=== PATIENT | female | born 1980 | race Caucasian/White ===

== ENCOUNTER 2016-10-17 17:22 | Emergency (ER) | payer OTHER ==
[~2016-10-17] VITALS: Ht 165.1 cm; Wt 79.8 kg
[~2016-10-17 17:22] MED LIST: ADVIL200 MG PO; ATARAX,VISTARIL25 MG PO; LEXAPRO20 MG PO; MOTRIN800 MG PO; Micronor PO; VENTOLIN HFA18 GM IH; ZITHROMAX Z-PA250 MG PO
[2016-10-17 18:48] LABS: HEMATOCRIT 45.5 % (36.0-46.0); MCH 31.5 PG (29.0-34.0); MCV 95.6 FL (83-99); MEAN PLAT.VOLUME 9.7 uM^3 (9.5-12.4); PLATELET COUNT 202 K/uL (156-360); RBC DIS.WIDTH-CV 12.4 % (11.8-14.6); RBC DIS.WIDTH-SD 44.1 % (39-53); RED BLOOD COUNT 4.76 M/uL (3.80-5.20); WHITE BLOOD COUNT 7.3 K/uL (4.1-10.2)
[2016-10-17 18:57] LABS: CHLORIDE 103 mEq/L (99-109); POTASSIUM 4.2 mEq/L (3.7-5.4); SODIUM 138 mEq/L (136-147)
[2016-10-17 18:59] LABS: GLUCOSE 93 mg/dL (70-99)
[2016-10-17 19:01] LABS: ANION GAP 8 MEQ/L (2-14)
[2016-10-17 19:03] LABS: GFR ESTIMATE (CALCULATED) > 59 mL/min/
[2016-10-17 19:04] LABS: UREA NITROGEN (BUN) 22 mg/dL (9-23)
[2016-10-17 19:08] LABS: TROP-I INTERPRETATION NEGATIVE; TROPONIN-I < 0.01 ng/mL (0.0-0.30)
[2016-10-17 19:11] LABS: QUANTITATIVE HCG < 4.0 MIU/ML
[2016-10-17 20:24] LABS: TROP-I INTERPRETATION NEGATIVE; TROPONIN-I < 0.01 ng/mL (0.0-0.30)
[2016-10-17 20:46] VITALS: BP 135/82
== END 2016-10-17 20:47 | disposition home or self-care (01) ==
LOC: EME 17:22
PROVIDERS: Physician Assistant Medical
DX: R07.89 Other chest pain (principal); Z87.891 Personal history of nicotine dependence
CPT/HCPCS: 71020; 80048; 84484; 84702; 85027; 93005; 99281; 99283

== ENCOUNTER → 2016-10-28 | Outpatient (CLI) | payer OTHER | END | disposition home or self-care (01) | LOC: CT 19:53 | DX: R10.31 Right lower quadrant pain (principal) | CPT/HCPCS: 74177 ==

== ENCOUNTER 2017-01-08 04:26 | Emergency (ER) | payer OTHER ==
[~2017-01-08] VITALS: Ht 165.1 cm; Wt 81.8 kg
[2017-01-08 05:24] LABS: BASOPHIL COUNT 0.1 K/uL (0-0.1); EOSINOPHIL (%) 1.7 % (0-5); EOSINOPHIL COUNT 0.3 K/uL (0-0.3); IMMATURE GRANULOCYTE (%) 0.7 % (0.0-0.7); IMMATURE GRANULOCYTE COUNT 0.1 K/uL; INSTRUMENT ABS NEUTROPHIL CT 14.9 K/uL; LYMPHOCYTE COUNT 1.1 K/uL (1.0-2.8); MCH 31.4 PG (29.0-34.0); MCHC 33.7 G/DL (30.0-36.0); MCV 93.4 FL (83-99); MEAN PLAT.VOLUME 9.1 uM^3 (9.5-12.4); MONOCYTE (%) 2.6 % (3-12); MONOCYTE COUNT 0.4 K/uL (0-0.8); NEUTROPHIL COUNT 14.9 K/uL (1.8-6.4); PLATELET COUNT 158 K/uL (156-360); RBC DIS.WIDTH-CV 12.5 % (11.8-14.6); RBC DIS.WIDTH-SD 43.3 % (39-53); RED BLOOD COUNT 4.07 M/uL (3.80-5.20); WHITE BLOOD COUNT 16.9 K/uL (4.1-10.2)
[2017-01-08 05:35] LABS: CHLORIDE 101 mEq/L (99-109); POTASSIUM 3.7 mEq/L (3.7-5.4); SODIUM 136 mEq/L (136-147)
[2017-01-08 05:38] LABS: GLUCOSE 104 mg/dL (70-99)
[2017-01-08 05:39] LABS: ANION GAP 10 MEQ/L (2-14)
[2017-01-08 05:40] LABS: TOTAL BILIRUBIN 0.4 mg/dL (0.0-1.0)
[2017-01-08 05:41] LABS: ALKALINE PHOSPHATASE 46 IU/L (3-129)
[2017-01-08 05:42] LABS: GFR ESTIMATE (CALCULATED) > 59 mL/min/
[2017-01-08 05:43] LABS: DIRECT BILIRUBIN 0.1 mg/dL (0.0-0.3); UREA NITROGEN (BUN) 14 mg/dL (9-23)
[2017-01-08 05:45] LABS: LIPASE 19 U/L (1.0-51.0)
[2017-01-08 07:42] LABS: ADD MIUA? NO; BILIRUBIN NEGATIVE; BLOOD NEGATIVE; COLOR YELLOW ((YELLOW)); GLUCOSE (STRIP) NEGATIVE; KETONES NEGATIVE; LEUKOCYTES NEGATIVE; NITRITE NEGATIVE; PROTEIN (STRIP) 30; UCUL ADDED? NO; UROBILINOGEN 0.2 MG/DL (0.2-1.0)
[2017-01-08 07:53] LABS: SPECIFIC GRAVITY 1.076 (1.000-1.030)
[2017-01-08 09:06] VITALS: BP 89/42
== END 2017-01-08 09:08 | disposition short-term general hospital (02) ==
LOC: EME 04:26
DX: R50.82 Postprocedural fever (principal); D72.829 Elevated white blood cell count, unspecified; R00.0 Tachycardia, unspecified; R11.0 Nausea; Z98.890 Other specified postprocedural states; Z90.13 Acquired absence of bilateral breasts and nipples; Z85.3 Personal history of malignant neoplasm of breast; Z87.891 Personal history of nicotine dependence
CPT/HCPCS: 71260; 80048; 80076; 81003; 83605; 83690; 85025; 87040; 99281; 99285; J0696; J2270; J2405; J3370; J7050

== ENCOUNTER 2017-01-29 15:31 | Emergency (ER) | payer OTHER ==
[~2017-01-29] VITALS: Ht 165.1 cm; Wt 85.0 kg
[2017-01-29 16:24] LABS: HEMATOCRIT 42.1 % (36.0-46.0); MCH 31.2 PG (29.0-34.0); MCHC 32.8 G/DL (30.0-36.0); MCV 95.2 FL (83-99); MEAN PLAT.VOLUME 9.4 uM^3 (9.5-12.4); PLATELET COUNT 244 K/uL (156-360); RBC DIS.WIDTH-CV 13.2 % (11.8-14.6); RBC DIS.WIDTH-SD 46.4 % (39-53); RED BLOOD COUNT 4.42 M/uL (3.80-5.20)
[2017-01-29 16:33] LABS: CHLORIDE 106 mEq/L (99-109); SODIUM 142 mEq/L (136-147)
[2017-01-29 16:34] LABS: GLUCOSE 92 mg/dL (70-99)
[2017-01-29 16:36] LABS: ANION GAP 10 MEQ/L (2-14)
[2017-01-29 16:38] LABS: GFR ESTIMATE (CALCULATED) > 59 mL/min/
[2017-01-29 16:39] LABS: UREA NITROGEN (BUN) 19 mg/dL (9-23)
[2017-01-29 16:47] LABS: QUANTITATIVE HCG < 4.0 MIU/ML
[2017-01-29 18:24] VITALS: BP 109/53
== END 2017-01-29 18:27 | disposition home or self-care (01) ==
LOC: EME 15:31
PROVIDERS: Nurse Practitioner Family
DX: G43.909 Migraine, unspecified, not intractable, without status migrainosus (principal); Z85.3 Personal history of malignant neoplasm of breast; Z90.13 Acquired absence of bilateral breasts and nipples; Z87.891 Personal history of nicotine dependence
CPT/HCPCS: 80048; 84702; 85027; 99281; 99285; J1200; J1885; J2765; J7030